=== PATIENT | male | born 1990 | race Caucasian/White ===

== ENCOUNTER 2020-08-22 15:39 | Outpatient (REF) | payer OTHER, SELFPAY | END 2020-08-22 15:40 | disposition home or self-care (01) | LOC: HO.HAP 15:39 | PROVIDERS: Visit Provider Internal Medicine | DX: H90.3 Sensorineural hearing loss, bilateral (principal) | CPT/HCPCS: V5264; V5266 ==

== ENCOUNTER 2020-11-06 12:06 | Outpatient (REF) | payer OTHER, SELFPAY | END 2020-11-06 12:07 | disposition home or self-care (01) | LOC: HO.HAP 12:06 | PROVIDERS: Visit Provider Internal Medicine | DX: Z46.1 Encounter for fitting and adjustment of hearing aid (principal) | CPT/HCPCS: V5266 ==

== ENCOUNTER 2021-01-20 13:16 | Outpatient (REF) | payer OTHER, SELFPAY | END 2021-01-20 13:17 | disposition home or self-care (01) | LOC: HO.HAP 13:16 | PROVIDERS: Visit Provider Internal Medicine | DX: Z46.1 Encounter for fitting and adjustment of hearing aid (principal) | CPT/HCPCS: V5266 ==

== ENCOUNTER 2021-05-02 14:44 | Outpatient (REF) | payer OTHER, SELFPAY | END 2021-05-02 14:45 | disposition home or self-care (01) | LOC: HO.HAP 14:44 | PROVIDERS: Visit Provider Internal Medicine | DX: Z46.1 Encounter for fitting and adjustment of hearing aid (principal); H90.6 Mixed conductive and sensorineural hearing loss, bilateral | CPT/HCPCS: V5266 ==

== ENCOUNTER 2021-05-29 14:37 | Outpatient (REF) | payer OTHER, SELFPAY | END 2021-05-29 14:38 | disposition home or self-care (01) | LOC: HO.LAB 14:37 | PROVIDERS: PCP Internal Medicine; Visit Provider Internal Medicine | DX: Z20.822 Contact with and (suspected) exposure to COVID-19 (principal) | CPT/HCPCS: C9803; U0003; U0005 ==

== ENCOUNTER 2021-06-10 12:48 | Outpatient (REF) | payer OTHER, SELFPAY ==
--- NOTE | ~2021-06-10 | XR_ITS ---
EXAMINATION: XR LUMBOSACRAL SPINE CLINICAL INFORMATION: Radiculopathy. COMPARISON: None TECHNIQUE: Three views of the lumbosacral spine. FINDINGS: Mild straightening of lordosis. The vertebral heights are well preserved. Some possible early disc space loss at L5-S1. The SI joints are grossly patent. There is no listhesis or compression injury. XR/XR lumbar spine 2-3V IMPRESSION: Mild straightening of the normal lordosis and some mild early disc space loss at L5-S1.
== END 2021-06-10 12:49 | disposition home or self-care (01) ==
LOC: HO.HMGCX 12:48
PROVIDERS: PCP Internal Medicine; Visit Provider Internal Medicine
DX: M54.16 Radiculopathy, lumbar region (principal)
CPT/HCPCS: 72100

== ENCOUNTER 2021-11-02 14:32 | Emergency (ER) | payer OTHER, SELFPAY ==
--- NOTE | ~2021-11-02 | CT_ITS ---
EXAMINATION: CT ABDOMEN AND PELVIS WITH CONTRAST CLINICAL INFORMATION: Rule out rectal abscess, perirectal abscess COMPARISON: None TECHNIQUE: Multidetector volumetric images were obtained from the superior aspect of the liver through the pubic symphysis following administration 85 mL of Omnipaque 350 intravenous contrast. Sagittal and coronal reformatted images were obtained on the technologist's workstation. Oral contrast: No This CT examination was performed using dose optimization techniques as appropriate, variously including the following: *Automated exposure control *Adjustment of mA and/or kV according to patient size (this includes techniques or standardized protocols for targeted exams where dose is matched to indication/reason for exam; i.e. extremities or head) *Use of iterative reconstruction technique DLP: 514 mGy-cm FINDINGS: LUNG BASES: The visualized lung bases are unremarkable. LIVER, GALLBLADDER, AND BILIARY TREE: The liver is normal in size, shape, and attenuation. No focal hepatic lesion or biliary ductal dilatation is present. The gallbladder is unremarkable with no evidence of radiopaque gallstones, gallbladder wall thickening, or obvious pericholecystic inflammatory changes. PANCREAS: Unremarkable. SPLEEN: Splenomegaly measuring 14.7 cm anterior to posterior and 13.8 cm craniocaudal. ADRENAL GLANDS: Unremarkable. KIDNEYS AND URETERS: The kidneys are normal in size, shape, and attenuation. No hydronephrosis, hydroureter, or calculi seen. No perinephric stranding. BLADDER: Unremarkable. GASTROINTESTINAL TRACT: The small and large bowel are unremarkable. The appendix is unremarkable. No perirectal inflammatory changes. ABDOMINAL WALL: No significant hernia is appreciated. LYMPH NODES: Normal. VASCULAR: Unremarkable. PELVIC VISCERA: Unremarkable. OSSEOUS STRUCTURES: Unremarkable. CT/CT abdomen pelvis w con IMPRESSION: No perirectal inflammatory changes to suggest perirectal abscess or fistula. If there is continued clinical concern, MRI is more sensitive. Nonspecific splenomegaly.
[2021-11-02 15:31] VITALS: BP 141/82; PULSE 79; RESP 18; TEMP 36.7; O2SAT 99; BMI 23.6
[2021-11-02 15:50] VITALS: BP 128/81; PULSE 62; RESP 14; TEMP 36.5; O2SAT 100
[2021-11-02 16:06] VITALS: BP 127/95; PULSE 84; RESP 16; O2SAT 98
--- NOTE | 2021-11-02 16:28 | ED.GENADULT ---
HPI - General Adult General Chief complaint: General Medical Stated complaint: hemorrhoids Time Seen by Provider: 11/02/21 16:28 History of Present Illness HPI narrative: Patient complains of rectal pain for 2-3 days, no fever no abdominal pain no nausea or vomiting no diarrhea no blood in stool, pain is worse today than the days before, no rectal bleeding Related Data Previous Rx's Medication Instructions Recorded lidocaine 5 % topical ointment 1 appl TOPICAL TID 10 Days #60 g 10/01/21 omeprazole 20 mg capsule,delayed 20 mg PO DAILY 30 Days #90 cap 10/22/21 release hydrocortisone 2.5 % topical 1 appl TOPICAL TID 10 Days #30 g 10/30/21 ointment docusate sodium 100 mg capsule 100 mg PO BID #14 cap 11/02/21 (Colace) hydrocortisone 2.5 % topical cream 1 appl TOPICAL BID PRN #20 g 11/02/21 hydrocortisone acetate 25 mg 25 mg WA BID PRN #12 ea 11/02/21 rectal suppository (Anusol-HC) ibuprofen 600 mg tablet 600 mg PO Q6H PRN #20 tab 11/02/21 Allergies Allergy/AdvReac Type Severity Reaction Status Date / Time No Known Allergies Allergy Verified 11/02/21 15:30 [No Known Allergies*] Review of Systems Review of Systems: Positive for rectal pain Negatives are no fever no chills no dizziness no headache no neck pain no chest pain no abdominal pain no nausea vomiting or diarrhea no dysuria no rash Yes all other systems are reviewed and are negative PMFSH Past Medical History Source: nursing notes reviewed Medical History (Updated 11/02/21 @ 18:44 by NICOLE Connell) Deaf No known health problems Social History Social History Housing: House Patient Tobacco Use Status: Current everyday Tobacco user Cigarette Packs Per Day: 1 Advance Directives: No Advance Directives Information Provided: No Current occupational status: employed Physical Exam Vital Signs: Vital Signs: Last Vital Signs Temp 97.7 F 11/02/21 15:50 Pulse 84 11/02/21 16:06 Resp 16 11/02/21 16:06 BP 127/95 H 11/02/21 16:06 Pulse Ox 98 11/02/21 16:06 BMI result Body Mass Index 23.6 General appearance is uncomfortable appearing The head is normocephalic atraumatic The eyes anicteric no pallor The pharynx well-hydrated no redness swelling or exudate Respiratory no distress Abdomen soft nontender Rectal exam external exam was normal soft palpation elicited lots of pain and discomfort and he would not permit and internal exam there was no swelling there was no obvious hemorrhoid there were no obvious lesions externally Extremities full range of motion x4 Course Course Course Narrative: Plan is to do IV contrast CT to rule out perirectal abscess Labs were without acute abnormality CT was done and did not show any abscess or any acute rectal pathology Patient is afebrile and is referred to surgeon for further evaluation and will come back if worse Medical Decision Making Lab Data Result diagrams: 11/02/21 16:53 11/02/21 16:53 Labs: Lab Results 11/02/21 11/02/21 Range/Units 16:53 16:53 WBC 8.5 (4.8-10.8) X10*3/uL RBC 4.59 L (4.60-5.80) X10*6/uL Hgb 15.2 (14.0-18.0) g/dl Hct 42.6 (42.0-52.0) % MCV 92.8 (80.0-98.0) fL MCH 33.1 H (27.0-33.0) pg MCHC 35.7 (31.0-36.0) g/dl RDW 12.3 (11.0-16.0) % Plt Count 239 (160-400) X10*3/uL MPV 8.9 L (9.4-12.4) fL Immature Gran % (Auto) 0.4 (0.0-0.4) % Neut % (Auto) 73.1 H (45-73) % Lymph % (Auto) 17.3 L (20-40) % [place] % (Auto) 7.1 (2-11) % Eos % (Auto) 1.4 (0-4) % Baso % (Auto) 0.7 (0-2) % Lymph # (Auto) 1.5 (1.2-4.9) X10*3/uL [place] # (Auto) 0.6 (0.1-1.2) X10*3/uL Eos # (Auto) 0.1 (0.0-0.4) X10*3/uL Baso # (Auto) 0.1 (0.0-0.2) X10*3/uL Abs Immat Gran (auto) 0.03 (0.00-0.03) X10*3/uL Absolute Neuts (auto) 6.2 (2.0-8.3) x10*3/uL Absolute Nucleated RBC 0.000 (0.0-0.012) X10*3/uL Nucleated RBC % (auto) 0.0 (0.0-0.2) /100WBC Sodium 144 (135-145) mmol/L Potassium 4.5 (3.3-5.1) mmol/L Chloride 111 H (96-108) mmol/L Carbon Dioxide 28 (22-29) mmol/L Anion Gap 10 L (12-20) BUN 16 (9-16) mg/dL Creatinine 0.78 (0.5-1.4) mg/dL Estim Creat Clear Calc 138.4 Estimated GFR > 60 Random Glucose 81 (60-115) mg/dL Calcium 9.3 (8.4-10.2) mg/dL Discharge Plan Discharge Clinical Impression: Pain, rectal Patient Disposition: Home, Self-Care Instructions: Sitz Bath (DC) Additional Instructions: The CT scan did not show any abscess or any dangerous condition We are giving you stool softener, suppositories in case there is an internal hemorrhoid, hydrocortisone cream for the outside You can use Motrin for pain Frequent warm soaks in the bathtub are helpful Return any time for worse pain swelling bleeding any worse condition or any concerns Follow with surgeon for further evaluation If surgeon is not available and pain is severe or worsening you can return to the ER in 2-3 days for re-evaluation Prescriptions: New hydrocortisone acetate [Anusol-HC] 25 mg suppository 25 mg WA BID PRN (Reason: hemorrhoids) Qty: 12 RF: 0 hydrocortisone 2.5 % cream 1 appl topical BID PRN (Reason: itching) Qty: 20 RF: 0 docusate sodium [Colace] 100 mg capsule 100 mg PO BID Qty: 14 RF: 0 ibuprofen 600 mg tablet 600 mg PO Q6H PRN (Reason: pain) Qty: 20 RF: 0 No Action omeprazole 20 mg capsule,delayed release(DR/EC) 20 mg PO DAILY 30 Days Qty: 90 RF: 0 hydrocortisone 2.5 % ointment 1 appl topical TID 10 Days Qty: 30 RF: 1 lidocaine 5 % ointment 1 appl topical TID 10 Days Qty: 60 RF: 0 Referrals: Royer De Los Santos MD [Physician] - 2 days (Severe rectal pain, no external hemorrhoid seen, CT scan was negative for abscess, patient would not permit internal exam and is treated for possible internal hemorrhoid ) Stand Alone Forms: Work/School Release
[2021-11-02 17:00] LABS: MANUAL DIFF FLAG NO
[2021-11-02] MEDS: Ketorolac Tromethamine 30 MG/ML VIAL IVPUSH (17:00)
[2021-11-02 17:01] LABS: Basophils Absolute Auto 0.1 X10*3/uL (0.0-0.2); Basophils Percent Auto 0.7 % (0-2); Eosinophils Absolute Auto 0.1 X10*3/uL (0.0-0.4); Eosinophils Percent Auto 1.4 % (0-4); Hematocrit 42.6 % (42.0-52.0); Hemoglobin 15.2 g/dl (14.0-18.0); Imm Gran Abs Auto 0.03 X10*3/uL (0.00-0.03); Imm Gran Pct Auto 0.4 % (0.0-0.4); Lymphocytes Absolute Auto 1.5 X10*3/uL (1.2-4.9); Lymphocytes Percent Auto 17.3 % (20-40); Mean Corpuscular HGB Conc 35.7 g/dl (31.0-36.0); Mean Corpuscular Hemoglobin 33.1 pg (27.0-33.0); Mean Corpuscular Volume 92.8 fL (80.0-98.0); Mean Platelet Volume 8.9 fL (9.4-12.4); Monocytes Absolute Auto 0.6 X10*3/uL (0.1-1.2); Monocytes Percent Auto 7.1 % (2-11); Neutrophils Absolute Auto 6.2 x10*3/uL (2.0-8.3); Neutrophils Percent Auto 73.1 % (45-73); Platelet Count 239 X10*3/uL (160-400); Red Blood Count 4.59 X10*6/uL (4.60-5.80); Red Cell Distribution Width 12.3 % (11.0-16.0); White Blood Count 8.5 X10*3/uL (4.8-10.8)
[2021-11-02 17:18] LABS: Anion Gap 10 (12-20); Blood Urea Nitrogen 16 mg/dL (9-16); Calcium 9.3 mg/dL (8.4-10.2); Carbon Dioxide 28 mmol/L (22-29); Chloride 111 mmol/L (96-108); Creatinine Clr Calc Pharmacy 138.4; Estimated Glomerular Filt Rate > 60; Glucose Random 81 mg/dL (60-115); Potassium 4.5 mmol/L (3.3-5.1); Sodium 144 mmol/L (135-145)
[2021-11-02] MEDS: iohexoL 350 MG/ML 100 ML INFUS..BTL IV (17:59)
== END 2021-11-02 19:02 | disposition home or self-care (01) ==
PROVIDERS: Physician Assistant Medical; Emergency Provider Internal Medicine
DX: K62.89 Other specified diseases of anus and rectum (principal); H91.90 Unspecified hearing loss, unspecified ear
CPT/HCPCS: 36415; 74177; 80048; 85025; 96374; 99284; J1885; Q9967

== ENCOUNTER 2022-04-13 09:03 | Outpatient (REF) | payer OTHER, SELFPAY | END 2022-04-13 09:04 | disposition home or self-care (01) | LOC: HO.HAP 09:03 | PROVIDERS: Visit Provider Internal Medicine | DX: Z46.1 Encounter for fitting and adjustment of hearing aid (principal); H90.3 Sensorineural hearing loss, bilateral | CPT/HCPCS: 92552 ==

== ENCOUNTER 2022-04-13 10:06 | Outpatient (REF) | payer OTHER, SELFPAY ==
[2022-04-13 12:46] LABS: MANUAL DIFF FLAG NO
[2022-04-13 12:56] LABS: Basophils Absolute Auto 0.1 X10*3/uL (0.0-0.2); Basophils Percent Auto 0.7 % (0-2); Eosinophils Absolute Auto 0.1 X10*3/uL (0.0-0.4); Eosinophils Percent Auto 1.9 % (0-4); Hematocrit 43.1 % (42.0-52.0); Hemoglobin 15.3 g/dl (14.0-18.0); Imm Gran Abs Auto 0.03 X10*3/uL (0.00-0.03); Imm Gran Pct Auto 0.4 % (0.0-0.4); Lymphocytes Absolute Auto 1.3 X10*3/uL (1.2-4.9); Lymphocytes Percent Auto 17.8 % (20-40); Mean Corpuscular HGB Conc 35.5 g/dl (31.0-36.0); Mean Corpuscular Hemoglobin 33.3 pg (27.0-33.0); Mean Corpuscular Volume 93.7 fL (80.0-98.0); Mean Platelet Volume 9.2 fL (9.4-12.4); Monocytes Absolute Auto 0.5 X10*3/uL (0.1-1.2); Monocytes Percent Auto 6.9 % (2-11); Neutrophils Absolute Auto 5.3 x10*3/uL (2.0-8.3); Neutrophils Percent Auto 72.3 % (45-73); Platelet Count 210 X10*3/uL (160-400); Red Cell Distribution Width 12.4 % (11.0-16.0); White Blood Count 7.4 X10*3/uL (4.8-10.8)
[2022-04-13 13:23] LABS: Alanine Aminotransferase 25 U/L (0-40); Albumin Level 4.4 g/dL (3.5-5.0); Alkaline Phosphatase 73 U/L (39-117); Anion Gap 12 (12-20); Aspartate Amino Transferase 23 U/L (5-37); Bilirubin Total 2.3 mg/dL (0.0-1.0); Blood Urea Nitrogen 18 mg/dL (9-16); Calcium 9.1 mg/dL (8.4-10.2); Carbon Dioxide 27 mmol/L (22-29); Chloride 104 mmol/L (96-108); Estimated Glomerular Filt Rate > 60; Glucose Random 93 mg/dL (60-115); Potassium 3.8 mmol/L (3.3-5.1); Sodium 139 mmol/L (135-145)
[2022-04-13 13:25] LABS: TSH reflex Free T4 2.84 uIU/mL (0.32-4.0)
== END 2022-04-13 10:07 | disposition home or self-care (01) ==
LOC: HO.HMGCLDS 10:06
PROVIDERS: PCP Internal Medicine; Visit Provider Internal Medicine
DX: R10.13 Epigastric pain (principal); K64.4 Residual hemorrhoidal skin tags; R63.4 Abnormal weight loss
CPT/HCPCS: 36415; 80053; 84443; 85025